=== PATIENT | female | born 1995 | race Caucasian/White ===

== ENCOUNTER 2021-12-19 11:45 | Emergency (ER) | payer OTHER, MEDICAID, SELFPAY ==
--- NOTE | ~2021-12-19 | CT_ITS ---
EXAMINATION: CT ABDOMEN AND PELVIS WITHOUT CONTRAST CLINICAL INFORMATION: Left flank pain COMPARISON: None TECHNIQUE: Multidetector volumetric imaging was performed from the superior aspect of the liver through the pubic symphysis. Sagittal and coronal reformatted images were obtained on the technologist's workstation. This CT examination was performed using dose optimization techniques as appropriate, variously including the following: *Automated exposure control *Adjustment of mA and/or kV according to patient size (this includes techniques or standardized protocols for targeted exams where dose is matched to indication/reason for exam; i.e. extremities or head) *Use of iterative reconstruction technique DLP: 343 mGy-cm FINDINGS: LUNG BASES: The visualized lung bases are unremarkable. LIVER, GALLBLADDER, AND BILIARY TREE: The liver is normal in size, shape, and attenuation. No focal hepatic lesion or biliary ductal dilatation is present. The gallbladder is unremarkable with no evidence of radiopaque gallstones, gallbladder wall thickening, or obvious pericholecystic inflammatory changes. PANCREAS: Unremarkable. SPLEEN: Unremarkable. ADRENAL GLANDS: Unremarkable. KIDNEYS AND URETERS: The kidneys are normal in size, shape, and attenuation. No hydronephrosis, hydroureter, or calculi seen. No perinephric stranding. BLADDER: Unremarkable. GASTROINTESTINAL TRACT: The small and large bowel are unremarkable. The appendix is unremarkable. ABDOMINAL WALL: No significant hernia is appreciated. LYMPH NODES: Normal. VASCULAR: Unremarkable. PELVIC VISCERA: The uterus and ovaries appear unremarkable. There is a small amount of fluid in the pelvis. OSSEOUS STRUCTURES: Unremarkable. CT/CT abdomen pelvis wo con IMPRESSION: Unremarkable exam. Fleischner guidelines were followed.
[2021-12-19 12:07] VITALS: BP 127/93; PULSE 90; RESP 16; TEMP 36.7; O2SAT 98; BMI 26.4
[2021-12-19 12:22] LABS: MANUAL DIFF FLAG NO
[2021-12-19 12:24] LABS: Basophils Percent Auto 0.3 % (0-2); Eosinophils Percent Auto 0.2 % (0-4); Hematocrit 35.2 % (37.0-47.0); Hemoglobin 11.2 g/dl (12.0-16.0); Imm Gran Abs Auto 0.06 X10*3/uL (0.00-0.03); Imm Gran Pct Auto 0.7 % (0.0-0.4); Lymphocytes Absolute Auto 1.9 X10*3/uL (1.2-4.9); Lymphocytes Percent Auto 20.9 % (20-40); Mean Corpuscular HGB Conc 31.8 g/dl (31.0-35.0); Mean Corpuscular Hemoglobin 25.5 pg (27.0-33.0); Mean Corpuscular Volume 80.2 fL (80.0-98.0); Mean Platelet Volume 11.1 fL (9.4-12.3); Monocytes Absolute Auto 1.2 X10*3/uL (0.1-1.2); Monocytes Percent Auto 13.1 % (2-11); Neutrophils Absolute Auto 5.9 x10*3/uL (2.0-8.3); Neutrophils Percent Auto 64.8 % (45-73); Platelet Count 173 X10*3/uL (160-400); Red Blood Count 4.39 X10*6/uL (4.20-5.50); Red Cell Distribution Width 17.1 % (11.0-16.0); White Blood Count 9.2 X10*3/uL (4.8-10.8)
[2021-12-19 12:43] LABS: Alanine Aminotransferase 14 U/L (0-31); Albumin Level 4.2 g/dL (3.5-5.0); Alkaline Phosphatase 66 U/L (39-117); Anion Gap 10 (12-20); Aspartate Amino Transferase 19 U/L (5-31); Bilirubin Total 0.3 mg/dL (0.0-1.0); Blood Urea Nitrogen 11 mg/dL (9-16); Calcium 9.8 mg/dL (8.4-10.2); Carbon Dioxide 27 mmol/L (22-29); Chloride 106 mmol/L (96-108); Creatinine Clr Calc Pharmacy 69.5; Estimated Glomerular Filt Rate > 60; Glucose Random 101 mg/dL (60-115); Potassium 4.2 mmol/L (3.3-5.1); Sodium 139 mmol/L (135-145); Total Protein 7.8 g/dL (6.5-8.0)
[2021-12-19 12:45] LABS: Appearance Urine CLOUDY; Color Urine YELLOW; Glucose Urine UA NEG (NEG); Leukocyte Esterase Urine 2+ (NEG); Nitrite Urine POS (NEG); PH 5.5 (5.0-8.0); UACC Culture Trigger YES; Urine Blood 1+ (NEG); Urine Ketones NEG (NEG); Urine Protein TRACE MG/DL (NEG-TRACE)
[2021-12-19 12:47] LABS: UPreg QC Valid YES; Urine Pregnancy NEGATIVE (NEGATIVE)
[2021-12-19 13:01] LABS: Bacteria Urine 2+ /LPF; Squamous Epithelial Cell Urine 2+ /LPF; WBC Clumps Urine NOTED
--- NOTE | 2021-12-19 14:01 | ED.ABDPAIN ---
HPI - Abdominal Pain General Chief Complaint: Abdominal Pain Stated Complaint: R SIDE ABD PAIN Time Seen by Provider: 12/19/21 12:42 Source: patient Mode of arrival: ambulatory Limitations: no limitations History of Present Illness MD elicited complaint: flank pain Pertinent past history: none Onset (ago): day(s) (4) Pain Consistency: constant Location: L flank Severity: moderate Quality: aching and fullness Radiation: none Migration to: no migration Exacerbating factors: nothing Relieving factors: nothing Associated symptoms: nausea, fever, chills and dysuria Related Data Previous Rx's Medication Instructions Recorded levofloxacin 750 mg tablet 750 mg PO Q24H 7 Days #7 tab 12/19/21 ondansetron 4 mg disintegrating 4 mg PO Q8H PRN #20 tab 12/19/21 tablet Allergies Allergy/AdvReac Type Severity Reaction Status Date / Time No Known Drug Allergies AdvReac Unknown Verified 12/19/21 12:14 Review of Systems Review of Systems Constitutional : No Weight loss, pos Fever, pos Chills ENT/Mouth : No sore throat, No Rhinorrhea Eyes: No Swelling, No Redness Cardiovascular : No Chest Pain, No SOB, NoEdema Respiratory : No Cough, No Sputum, No Wheezing Gastrointestinal : Positive Nausea, no Vomiting, no Diarrhea, no abdominal Pain, No Hematochezia, No Melena Genitourinary : pos Dysuria, No Urinary Frequency, No Hematuria, No Urgency Musculoskeletal : No joint pain, No Myalgias, No Joint Swelling Skin : No Skin Lesions, No rash Neuro : No Weakness, No Numbness, No Dizziness, No Headache Psych : No Anxiety/Panic, No Depression Heme/Lymph: No Bruising, No Lymphadenopathy Endocrine : No Polyuria, No Polydipsia All other systems reviewed and are negative. [facility] Past Medical History Attestation statement: The following information was validated with the patient. Medical History (Updated 12/19/21 @ 14:47 by Sabra Shelby DO) No known health problems Social History Social History (Updated 12/19/21 @ 14:15 by Sabra Shelby DO) Patient Tobacco Use Status: Current everyday Tobacco user Patient : No Physical Exam ED Vital Signs: Vital Signs - 24 hr 12/19/21 12:07 Temperature 98.0 F Pulse Rate 90 Respiratory Rate 16 Blood Pressure 127/93 H Pulse Oximetry 98 BMI result Body Mass Index 26.4 Appearance: Alert. Oriented X3. No acute distress. Eyes: Pupils equal, round and reactive to light. ENT: Pharynx normal. Neck: Normal inspection. Neck supple. CVS: Normal heart rate and rhythm. Pulses normal. Respiratory: No respiratory distress. Breath sounds normal. Abdomen: Soft and mild L sided ttp Back: L CVA ttp Skin: Skin warm and dry. Normal skin color. Normal skin turgor. Extremities: No lower extremity edema. No calf ttp Neuro: Oriented X 3. No motor deficit. No sensory deficit. Course Course Course Narrative: CT scan negative for stones not toxic stable for DC at this time - able to tolerate PO MDM - Abdominal Pain MDM Narrative Medical decision making narrative: 26 yo female no PMH here with c/o L flank pain and dysuria/fevers no vomiting - at this time + UTI with WBC clumps concerning for pyelonephritis. Will add on lactic acid, cultures, CT scan for renal colic, IVF, IV toradol for pain, IV ceftriaxone. She has no fever here no WBC count, no vomiting may be able to trial outpatient if she can tolerate PO. Dispo per results and findings. Differential Diagnosis Differential diagnosis: Likely abdominal pain Lab Data Result diagrams: 12/19/21 12:18 12/19/21 12:18 Labs: Lab Results 12/19/21 12/19/21 12/19/21 Range/Units 12:18 12:18 12:24 WBC 9.2 (4.8-10.8) X10*3/uL RBC 4.39 (4.20-5.50) X10*6/uL Hgb 11.2 L (12.0-16.0) g/dl Hct 35.2 L (37.0-47.0) % MCV 80.2 (80.0-98.0) fL MCH 25.5 L (27.0-33.0) pg MCHC 31.8 (31.0-35.0) g/dl RDW 17.1 H (11.0-16.0) % Plt Count 173 (160-400) X10*3/uL MPV 11.1 (9.4-12.3) fL Immature Gran % (Auto) 0.7 H (0.0-0.4) % Neut % (Auto) 64.8 (45-73) % Lymph % (Auto) 20.9 (20-40) % Barnes % (Auto) 13.1 H (2-11) % Eos % (Auto) 0.2 (0-4) % Baso % (Auto) 0.3 (0-2) % Lymph # (Auto) 1.9 (1.2-4.9) X10*3/uL Barnes # (Auto) 1.2 (0.1-1.2) X10*3/uL Eos # (Auto) 0.0 (0.0-0.4) X10*3/uL Baso # (Auto) 0.0 (0.0-0.2) X10*3/uL Abs Immat Gran (auto) 0.06 H (0.00-0.03) X10*3/uL Absolute Neuts (auto) 5.9 (2.0-8.3) x10*3/uL Absolute Nucleated RBC 0.000 (0.0-0.012) X10*3/uL Nucleated RBC % (auto) 0.0 (0.0-0.2) /100WBC Sodium 139 (135-145) mmol/L Potassium 4.2 (3.3-5.1) mmol/L Chloride 106 (96-108) mmol/L Carbon Dioxide 27 (22-29) mmol/L Anion Gap 10 L (12-20) BUN 11 (9-16) mg/dL Creatinine 1.02 (0.5-1.4) mg/dL Estim Creat Clear Calc 69.5 Estimated GFR > 60 Random Glucose 101 (60-115) mg/dL Calcium 9.8 (8.4-10.2) mg/dL Total Bilirubin 0.3 (0.0-1.0) mg/dL AST 19 (5-31) U/L ALT 14 (0-31) U/L Alkaline Phosphatase 66 (39-117) U/L Total Protein 7.8 (6.5-8.0) g/dL Albumin 4.2 (3.5-5.0) g/dL Urine Color Urine Appearance Urine pH (5.0-8.0) Ur Specific [place] (1.005-1.025) Urine Protein (NEG-TRACE) MG/DL Urine Glucose (UA) (NEG) MG/DL Urine Ketones (NEG) MG/DL Urine Blood (NEG) Urine Nitrite (NEG) Ur Leukocyte Esterase (NEG) Urine RBC (0) /HPF Urine WBC (0-4) /HPF Urine WBC Clumps Ur Squamous Epith Cells /LPF Urine Bacteria /LPF Urine Test NEGATIVE (NEGATIVE) 12/19/21 Range/Units 12:24 WBC (4.8-10.8) X10*3/uL RBC (4.20-5.50) X10*6/uL Hgb (12.0-16.0) g/dl Hct (37.0-47.0) % MCV (80.0-98.0) fL MCH (27.0-33.0) pg MCHC (31.0-35.0) g/dl RDW (11.0-16.0) % Plt Count (160-400) X10*3/uL MPV (9.4-12.3) fL Immature Gran % (Auto) (0.0-0.4) % Neut % (Auto) (45-73) % Lymph % (Auto) (20-40) % Barnes % (Auto) (2-11) % Eos % (Auto) (0-4) % Baso % (Auto) (0-2) % Lymph # (Auto) (1.2-4.9) X10*3/uL Barnes # (Auto) (0.1-1.2) X10*3/uL Eos # (Auto) (0.0-0.4) X10*3/uL Baso # (Auto) (0.0-0.2) X10*3/uL Abs Immat Gran (auto) (0.00-0.03) X10*3/uL Absolute Neuts (auto) (2.0-8.3) x10*3/uL Absolute Nucleated RBC (0.0-0.012) X10*3/uL Nucleated RBC % (auto) (0.0-0.2) /100WBC Sodium (135-145) mmol/L Potassium (3.3-5.1) mmol/L Chloride (96-108) mmol/L Carbon Dioxide (22-29) mmol/L Anion Gap (12-20) BUN (9-16) mg/dL Creatinine (0.5-1.4) mg/dL Estim Creat Clear Calc Estimated GFR Random Glucose (60-115) mg/dL Calcium (8.4-10.2) mg/dL Total Bilirubin (0.0-1.0) mg/dL AST (5-31) U/L ALT (0-31) U/L Alkaline Phosphatase (39-117) U/L Total Protein (6.5-8.0) g/dL Albumin (3.5-5.0) g/dL Urine Color YELLOW Urine Appearance CLOUDY Urine pH 5.5 (5.0-8.0) Ur Specific [place] 1.020 (1.005-1.025) Urine Protein TRACE (NEG-TRACE) MG/DL Urine Glucose (UA) NEG (NEG) MG/DL Urine Ketones NEG (NEG) MG/DL Urine Blood 1+ H (NEG) Urine Nitrite POS H (NEG) Ur Leukocyte Esterase 2+ H (NEG) Urine RBC 5-9 H (0) /HPF Urine WBC 76-150 H (0-4) /HPF Urine WBC Clumps NOTED Ur Squamous Epith Cells 2+ /LPF Urine Bacteria 2+ /LPF Urine Test (NEGATIVE) Discharge Plan Discharge Clinical Impression: Pyelonephritis Patient Disposition: Home, Self-Care Instructions: Kidney Infection (ED), Levofloxacin (By mouth) Additional Instructions: return to ED for any worsening symptoms or concerns return if you vomit, cannot tolerate antibiotics, have fevers, feels worse no strenuous exercise while on antibiotics it can cause tendon injury or rupture control pills can become less effective on antibiotics take a probiotic while on antibiotic Prescriptions: New levofloxacin 750 mg tablet 750 mg PO Q24H 7 Days Qty: 7 0RF ondansetron 4 mg tablet,disintegrating 4 mg PO Q8H PRN (Reason: nausea and vomiting) Qty: 20 0RF Stand Alone Forms: Work/School Release
[2021-12-19] MEDS: cefTRIAXone sodium 1 GM in 0.9 % Sodium Chloride 50 ML IV (15:25)
[2021-12-19] MEDS: Ketorolac Tromethamine 30 MG/ML VIAL IVPUSH (15:25)
[2021-12-19] MEDS: ondansetron HCL 4 MG/2 ML VIAL IVPUSH (15:25)
== END 2021-12-19 15:55 | disposition home or self-care (01) ==
PROVIDERS: Emergency Provider Emergency Medicine
DX: N12 Tubulo-interstitial nephritis, not specified as acute or chronic (principal); R10.9 Unspecified abdominal pain; F17.200 Nicotine dependence, unspecified, uncomplicated
CPT/HCPCS: 36415; 74176; 80053; 81001; 81025; 83605; 85025; 87040; 87086; 87088; 87186; 96365; 96375; 99283; 99284; J0696; J1885; J2405

== ENCOUNTER 2022-02-09 09:41 | Emergency (ER) | payer OTHER, SELFPAY ==
[2022-02-09 10:02] VITALS: BP 136/66; PULSE 80; RESP 16; TEMP 37; O2SAT 100; BMI 23.1
--- NOTE | 2022-02-09 11:13 | ED_ITS ---
HPI - Female Genitourinary General Chief complaint: Urogenital-Female Stated complaint: std check Time Seen by Provider: 02/09/22 11:13 Source: patient Mode of arrival: ambulatory Limitations: no limitations History of Present Illness HPI Narrative: Patient is a 26 year old female presenting to the emergency department today requesting STD treatment and testing. Patient states that she had unprotected sex with her ex and her ex had been hooking up with others. Patient denies any dizziness, lightheadedness, vaginal discharge, vaginal bleeding, abdominal pain, nausea, vomiting, fever, chills, blurry vision, double vision, loss of vision, chest pain, difficulty breathing, shortness of breath, back pain, night sweats, pain with urination, increased urinary frequency, increased urinary urgency, blo od in her urine or stool, syncope or a near syncopal episode, recent trauma or falls, bowel incontinence, bladder incontinence, bowel retention, bladder retention, or any other complaints at this time. MD elicited complaint: possible STD Related Data Previous Rx's Medication Instructions Recorded levofloxacin 750 mg tablet 750 mg PO Q24H 7 Days #7 tab 12/19/21 ondansetron 4 mg disintegrating 4 mg PO Q8H PRN #20 tab 12/19/21 tablet doxycycline hyclate 150 mg tablet 150 mg PO BID 7 Days #14 tab 02/09/22 Allergies Allergy/AdvReac Type Severity Reaction Status Date / Time No Known Drug Allergies AdvReac Unknown Verified 12/19/21 12:14 Review of Systems Review of Systems: Yes all other systems are reviewed and are negative Constitutional: Constitutional: Reports no additional constitutional complaints, Denies chills, Denies fever(s) and Denies night sweats Eyes: Eyes: Reports no additional eye complaints, Denies blurry vision, Denies change in vision, Denies diplopia, Denies eye discharge, Denies loss of vision and Denies eye pain ENT: Denies dizziness Cardiovascular: Cardiovascular: Reports no additional cardiovascular complaints, Denies chest pain, Denies lightheadedness, Denies Loss of Consciousness and Denies dyspnea Respiratory: Respiratory: Reports no additional respiratory complaints and Denies dyspnea Gastrointestinal: Gastrointestinal: Reports no additional gastrointestinal complaints, Denies abdominal pain, Denies melena, Denies hematochezia, Denies change in bowel habits and Denies change in stool character Genitourinary: Genitourinary: Denies hematuria, Denies urinary frequency, Denies dysuria, Denies urinary incontinence, Denies urinary hesitancy and Denies urinary urgency Musculoskeletal: Musculoskeletal: Reports no additional musculoskeletal complaints, Denies numbness and Denies tingling Neurologic: Denies dizziness, Denies loss of vision, Denies numbness and Denies tingling Psychiatric: Psychiatric: Reports no additional psychiatric complaints Endocrine: Endocrine: Reports no additional endocrine complaints Hematologic/Lymphatic: Hematologic/Lymphatic: Reports no additional hematologic/lymphatic complaints Allergic/Immunologic: Allergic/Immunologic: Reports no additional allergic/immunologic complaints [facility] Past Medical History Attestation statement: The following information was validated with the patient. Source: old records reviewed Medical History No known health problems Social History Social History Patient Tobacco Use Status: Current everyday Tobacco user Advance Directives: No Advance Directives Information Provided: No Patient : No Physical Exam Vital Signs: Vital Signs: Last Vital Signs Temp 98.6 F 02/09/22 10:02 Pulse 80 02/09/22 10:02 Resp 16 02/09/22 10:02 BP 136/66 02/09/22 10:02 Pulse Ox 100 02/09/22 10:02 BMI result Body Mass Index 23.1 Const: General: cooperative, no acute distress, alert and awake Nutritional Appearance: well nourished Orientation/consciousness: patient oriented x3 Limitations: no limitations HEENT: Head: Yes normal to inspection and Yes atraumatic Ears: hearing grossly normal bilaterally and external ears normal General nose exam: Normal external nose present, no nasal discharge noted and no epistaxis Face and sinus: Yes normal facial exam, No abrasion and No laceration Mouth: Normal oral and palatal mucosa present, no drooling and no muffled voice Eyes: General: appearance normal, both eyes and all related structures Periorbital: periorbital findings normal Eyelids: Yes eyelids normal Conjunctivae: conjunctivae normal Pupils: Equal, round and reactive pupils present EOM: EOMs intact bilaterally Neck: Neck: Yes normal visual inspection, Yes full ROM and Yes no lymphadenopathy Chest: Chest palpation & inspection: normal inspection of the chest Resp: Effort & Inspection: normal respiratory effort and able to speak in complete sentences Auscultation: clear to auscultation bilaterally Cardio: Rate: regular rate Rhythm: regular rhythm GI: Inspection: Yes normal to inspection Neuro: General: patient oriented x3 and moves all extremities Cranial nerves: Yes Equal, round and reactive pupils present Cognition (Neuro): normal cognition Motor exam (neuro): 5/5 motor strength present throughout Sensory Exam: Normal double simultaneous stimulation for sensation Coordination: [id number] test normal Extrem: General: Yes normal to inspection, Yes full ROM and Yes capillary refill normal Psych: Appearance: grossly normal Mental Status: mental status grossly normal Affect: normal affect Attitude: cooperative Thought process: Normal thought process present Thought content: Normal thought content present Insight: Good insight present (Psych) MDM - Female Genitourinary MDM Narrative Medical decision making narrative: Patient is a 26 year old female presenting to the emergency department today requesting STD treatment and testing. Patient's physical exam was unremarkable.Patient's urine is pending. I explained my physical exam findings to the patient. I answered all questions asked by the patient. I stressed the importance of the patient taking her medication as prescribed. I stressed the importance of the patient following up with her primary care provider. I stressed the importance of the patient returning to the emergency department immediately if her symptoms were to worsen or if she were to develop any dizziness, shortness of breath, difficulty breathing, chest pain, blurry vision, loss of vision, nausea, vomiting, abdominal pain, fever, chills, back pain, or any other complaints. Patient verbalized agreement and understanding with this treatment plan and discharge. Differential Diagnosis Differential diagnosis: Likely bacterial vaginosis (STI prophylaxis) Medical Records Attestation: I reviewed the patient's medical records. Discharge Plan Discharge Clinical Impression: STI (sexually transmitted infection) Patient Disposition: Home, Self-Care Instructions: Safe Sex Practices (ED) Additional Instructions: Follow up with your primary care provider. Return to the emergency department immediately if your symptoms worsen or if you develop any dizziness, shortness of breath, difficulty breathing, chest pain, blurry vision, loss of vision, nausea, vomiting, abdominal pain, fever, chills, back pain, or any other complai nts. Prescriptions: New doxycycline hyclate 150 mg tablet 150 mg PO BID 7 Days Qty: 14 0RF No Action levofloxacin 750 mg tablet 750 mg PO Q24H 7 Days Qty: 7 0RF ondansetron 4 mg tablet,disintegrating 4 mg PO Q8H PRN (Reason: nausea and vomiting) Qty: 20 0RF Referrals: Physician,None [Primary Care Provider] - (Follow up with your PCP as needed. ) Interventions: ED Discharge Assessment Last Done: 02/09/22 11:35 Discharge Date/Time: 02/09/22 11:35 Print Language: Green[place]ic
[2022-02-09] MEDS: cefTRIAXone sodium 500 MG, Lidocaine HCl 1 % MPF 1 ML IM (11:30)
[2022-02-09 16:53] LABS: CT PCR NOT DETECTED (Not Detect.); NG PCR NOT DETECTED (Not Detect.)
== END 2022-02-09 11:35 | disposition home or self-care (01) ==
PROVIDERS: Emergency Provider Emergency Medicine Emergency Medical Services
DX: Z20.2 Contact with and (suspected) exposure to infections with a predominantly sexual mode of transmission (principal); F17.200 Nicotine dependence, unspecified, uncomplicated
CPT/HCPCS: 87491; 87591; 96372; 99284; J0696

== ENCOUNTER 2023-07-12 09:31 | Emergency (ER) | payer OTHER, SELFPAY ==
--- NOTE | ~2023-07-12 | XR_ITS ---
EXAMINATION: XR ANKLE, RIGHT CLINICAL INFORMATION: Trauma and pain COMPARISON: None available. TECHNIQUE: AP, lateral, and mortise views of the right ankle. FINDINGS: There is a spiral fracture of the distal right fibula extending to the lateral aspect of the ankle mortise. Lateral soft tissue swelling is present. The distal tibia is intact. The talar dome is also intact. There is mild widening of the medial ankle gutter. XR/XR ankle RT min 3V IMPRESSION: Spiral fracture of the distal right fibula extending to the ankle joint with mild widening of the medial gutter.
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
[2023-07-12 10:14] VITALS: BP 134/89; PULSE 69; RESP 16; TEMP 36.7; O2SAT 100; BMI 32.6
[2023-07-12] MEDS: Ketorolac Tromethamine 15 MG/ML VIAL 30 MG IM (10:46)
[2023-07-12] MEDS: Morphine Sulfate Immed Release 15 MG TABLET PO (12:11)
--- NOTE | 2023-07-12 12:12 | PC.NURSE ---
medicated per the MAR for pain.
== END 2023-07-12 13:00 | disposition home or self-care (01) ==
PROVIDERS: Emergency Provider Emergency Medicine
DX: S82.891A Other fracture of right lower leg, initial encounter for closed fracture (principal); M25.571 Pain in right ankle and joints of right foot; X50.1XXA Overexertion from prolonged static or awkward postures, initial encounter; Y93.9 Activity, unspecified; Y92.9 Unspecified place or not applicable; Y99.9 Unspecified external cause status; Z79.899 Other long term (current) drug therapy
CPT/HCPCS: 29515; 73610; 96372; 99283; 99284; J1885

== ENCOUNTER 2023-07-19 11:33 | Outpatient (AMB) | payer OTHER, SELFPAY ==
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
[2023-07-19 11:40] VITALS: BMI 32.6
== END 2023-07-19 12:04 | disposition home or self-care (01) ==
PROVIDERS: Visit Provider Physician Assistant
DX: S82.831A Other fracture of upper and lower end of right fibula, initial encounter for closed fracture (principal); S82.441A Displaced spiral fracture of shaft of right fibula, initial encounter for closed fracture
CPT/HCPCS: 27786; 99204

== ENCOUNTER → 2023-07-19 11:33 | Outpatient (BNVA) | payer OTHER, SELFPAY | PROVIDERS: Visit Provider Physician Assistant ==

== ENCOUNTER 2023-07-25 07:39 | Day surgery (SDC) | payer OTHER, SELFPAY ==
--- NOTE | 2023-07-23 08:35 | HO.ANESPROP2 ---
Documented by User: Kaylie Duarte NP 07/23/23 08:35 HPI - Anesthesia Eval Consult details Narrative: 28yo F for Right Ankle Fracture ORIF PMFSH Active Problems Active Problems: All Active Problems (Updated 07/19/23 @ 11:44 by Radha Bazzi) Fracture of distal end of right fibula (Acute) Past Medical History Medical History No known health problems Social History Social History Patient Tobacco Use Status: Current someday Tobacco user Tobacco use type: Cigarette Meds Allergies Allergy/AdvReac Type Severity Reaction Status Date / Time No Known Drug Allergies AdvReac Unknown Verified 07/25/23 07:49 Exam Exam Date and Time: July 23, 2023 0835 Assessment and Plan Assessment Anesthesia Assessment: Chart Reviewed Documented by User: Ham Cervantes MD 07/25/23 18:46 HPI - Anesthesia Eval Consult details Narrative: 28yo F for Right Ankle Fracture ORIF Obesity PMFSH Past Medical History Medical History No known health problems Family History Family history of problems with anesthesia: No Surgical History History of Problems with Anesthesia: No Social History Social History Patient Tobacco Use Status: Current someday Tobacco user Tobacco use type: Cigarette Meds Allergies Allergy/AdvReac Type Severity Reaction Status Date / Time No Known Drug Allergies AdvReac Unknown Verified 07/25/23 07:49 Exam Airway Mallampati Class: III Loose/Missing/Broken Teeth: Yes Assessment and Plan Assessment Anesthesia Assessment: Anesthesia Plan Discussed Final Anesthetic Review Family History of Problems with Anesthesia: No History of Problems with Anesthesia: No NPO: Yes ASA Class: II Final Preanesthetic Review: Consent Obtained/Reviewed and Anes Risks/Benef Reviewed Patient Risk: Intermediate Procedure Risk: Intermediate Anesthetic Plan Anesthetic Plan: GA, Regional Block and Agree w/ Assess. and Plan Disposition: Standard PACU
[2023-07-25] VITALS (7 sets, daily range): BP systolic 111–125; BP diastolic 57–84; PULSE 62–83; RESP 14–18; TEMP 36.1–36.9; O2SAT 98–100; BMI 32.1
--- NOTE | ~2023-07-25 | FL_ITS ---
INDICATION: Intraoperative fluoroscopy. FLUOROSCOPY: Fluoroscopy Time: 0.0 minutes Dose/DAP: 0.64044 mGy Images saved: 4 FINDINGS: Multiple intraoperative fluoroscopic images are submitted during open reduction internal fixation of the right ankle. Correlation with operative report. Evaluation is limited secondary to fluoroscopic technique. IMPRESSION: Intra-operative fluoroscopic imaging provided by radiology during open reduction internal fixation of the right ankle. Please refer to operative note for further information.
[2023-07-25 07:55] LABS: UPreg QC Valid YES; Urine Pregnancy NEGATIVE (NEGATIVE)
[2023-07-25] MEDS: Lactated Ringers 1,000 ML 100 ML IVCONT (08:10)
--- NOTE | 2023-07-25 09:24 | MHC.SHP ---
Pre-Procedural Eval Section A Date of Service: 07/25/23 The patient is an INPATIENT: No Changes since office visit: No Cold of Flu in the past 2 weeks, No New Medical Problems, No Changes in Medication and No Patient answered all questions The History & Physical has been completed within 30 days and I have reviewed it.: Yes Section B Chief Complaint: Other fracture of upper and lower end of right fib Allergies: Allergies Allergy/AdvReac Type Severity Reaction Status Date / Time No Known Drug Allergies AdvReac Unknown Verified 07/25/23 07:49 Plan I have reviewed the history and physical and performed a pertinent physical examination on my patient. No changes have occurred unless specified. Time Spent With Patient Time: Total time managing care of this patient today ____ minutes.
--- NOTE | 2023-07-25 10:44 | P.BOP_ITS ---
Brief Operative Note Date of Service: 07/25/23 Pre-op diagnosis: Right fibular fracture Post-op diagnosis: same Procedure: ORIF right fibula Implants: [place] Surgeon: Freddie King MD Anesthesia: GETA and regional Was an Marketing Strategy Analyst used for this Procedure?: Yes Marketing Strategy Analyst: Arabella Todd Estimated blood loss (mL): 10 Tourniquet time (min): 25 IV fluids (mL): 800 Pathology: none sent Condition: stable Disposition: PACU
--- NOTE | 2023-07-30 11:12 | P.OP_ITS ---
Operative Note Operative Note Date of Service: 07/25/23 Narrative: Date of Service: 07/25/23 Pre-op diagnosis: Right fibular fracture Post-op diagnosis: same Procedure: ORIF right fibula Implants: [place] Surgeon: Freddie King MD Anesthesia: GETA and regional Was an Supervisor Industrial Arts Education used for this Procedure?: Yes Supervisor [employer] Education: Arabella Todd Estimated blood loss (mL): 10 Tourniquet time (min): 25 IV fluids (mL): 800 Pathology: none sent Condition: stable Disposition: PACU Procedure in detail: Patient was brought to the operating room and placed supine on the operative table. All bony prominences were well padded and a time-out was called to identify proper site proper procedure proper surgeon. IV antibiotics per weight were administered. I began by exsanguinating limb is slightly tourniquet to 300 mm Hg. I then made a standard posterolateral incision over the fibula. Full- thickness flaps were taken down to the fibular shaft and distal fibula. The fracture was identified and cleaned with a combination of curette, rongeur and irrigation. A lobster claw was used to provisionally reduce the fracture and a 6 hole distal fibular locking plate was applied using standard AO technique. Biplanar fluoroscopy was used to confirm hardware position and fracture reduction. Once I was satisfied that both of these were acceptable I irrigated copiously and turned my attention to the syndesmosis. An external rotation test was performed and the syndesmosis was stable. Therefore all instrumentation was removed and copious irrigation was performed. Absorbable suture and briana were used for closure and the patient was placed into sterile dressings and a well-padded posterior splint. Tourniquet was let down and the patient was extubated brought to recovery room in stable condition there were no known complications.
== END 2023-07-25 12:21 | disposition home or self-care (01) ==
LOC: HO.SSS 07:40
PROVIDERS: Nurse Practitioner; Visit Provider Orthopaedic Surgery
PROC: (CPT 27792; principal; 2023-07-25 09:40)
DX: S82.831A Other fracture of upper and lower end of right fibula, initial encounter for closed fracture (principal); Y04.2XXA Assault by strike against or bumped into by another person, initial encounter; Y93.89 Activity, other specified; Y92.9 Unspecified place or not applicable; Y99.9 Unspecified external cause status; F17.210 Nicotine dependence, cigarettes, uncomplicated; Z79.899 Other long term (current) drug therapy
CPT/HCPCS: 27792; 81025; C1713; J0131; J0690; J2250; J2795; J3010

== ENCOUNTER → 2023-07-25 07:39 | Outpatient (BNV) | payer OTHER, SELFPAY | PROVIDERS: Visit Provider Orthopaedic Surgery | DX: S82.441A Displaced spiral fracture of shaft of right fibula, initial encounter for closed fracture (principal) | CPT/HCPCS: 27792 ==

== ENCOUNTER 2023-08-06 12:10 | Outpatient (REF) | payer OTHER, SELFPAY | END 2023-08-06 12:11 | disposition home or self-care (01) | LOC: HO.HOSX 12:10 | PROVIDERS: Visit Provider Orthopaedic Surgery | DX: S82.831D Other fracture of upper and lower end of right fibula, subsequent encounter for closed fracture with routine healing (principal) | CPT/HCPCS: 73610 ==

== ENCOUNTER 2023-08-06 13:14 | Outpatient (AMB) | payer OTHER, SELFPAY ==
--- NOTE | 2023-08-06 13:34 | MHC.OFFVIS ---
Intake Intake Visit Reasons: PO RT ankle ORIF 07/25/23NE Intake Note: Estelle is a 28 year olf female who presents today for a post operative appointment s/p Right ankle ORIF 07/25/23. Patient reports that she is doing well with mild pain, she is taking oxycodone which is helping her pain. Has some mild numbness in the toes. Allergies No Known Drug Allergies Adverse Reaction (Verified 07/25/23 07:49) Unknown HPI PO RT ankle ORIF 07/25/23NE HPI Details Estelle is a 28 year old woman who presents ~10 days S/P right fibula ORIF. She says she is doing well and is managing her pain with Oxycodone. She complains of some numbness in her toes [facility] Medical History No known health problems Social History Patient Tobacco Use Status: Current someday Tobacco user Tobacco use type: Cigarette Review of Systems Const All systems reviewed & are unremarkable except as noted in HPI and below Physical Exam Const General: no acute distress, alert and awake Orientation/consciousness: patient oriented x3 HEENT Head: Yes normocephalic and Yes atraumatic Eyes EOM: EOMs intact bilaterally Resp Effort & Inspection: normal respiratory effort and able to speak in complete sentences Cardio Jugular venous distension: no JVD Skin General skin exam: turgor normal Rashes: no rashes Neuro General: patient oriented x3 Extrem Other: Right Ankle: Incision C/D/I Psych Appearance: grossly normal Affect: normal affect Attitude: cooperative Results Reviewed Results Reviewed: I personally reviewed relevant radiographs. Ankle lateral malleolus fracture with no hardware complications Mortise aligned Assessment & Plan Assessment & Plan (1) Fracture of distal end of right fibula: Code(s): S82.831A - Other fracture of upper and lower end of right fibula, initial encounter for closed fracture Qualifiers: Encounter type: initial encounter Fracture morphology: unspecified fracture morphology Fracture type: closed Qualified Code(s): S82.831A - Other fracture of upper and lower end of right fibula, initial encounter for closed fracture Plan: This is a 28 year old woman S/P right fibula ORIF, DOS: 07/25/23. She is doing well, with mild pain which she is managing with her Oxycodone prescription. She was placed in a cast today and will remain non-WB. She will follow up in 4 weeks. Plan Scribed for Freddie King MD by Noah Freeman, medical services assistant, on 08/06/23 at 1:55 PM, EST. Orders: Orders XR ankle RT min 3V 08/06/23 M25.579 - Pain in unspecified ankle and joints of unspecified foot Coding Level of Care Code Global (12572) Diagnoses Closed fracture of distal end of right fibula, unspecified fracture morphology, initial encounter S82.831A Encounter type: initial encounter Fracture morphology: unspecified fracture morphology Fracture type: closed
== END 2023-08-06 14:35 | disposition home or self-care (01) ==
PROVIDERS: Visit Provider Orthopaedic Surgery
DX: S82.831A Other fracture of upper and lower end of right fibula, initial encounter for closed fracture (principal)
CPT/HCPCS: 99024

== ENCOUNTER 2023-08-20 14:03 | Outpatient (REF) | payer OTHER, SELFPAY ==
--- NOTE | ~2023-08-20 | XR_ITS ---
EXAMINATION: XR ANKLE, RIGHT CLINICAL INFORMATION: Pain in the right ankle, follow-up fracture. COMPARISON: 08/06/2023 and 07/12/2023 TECHNIQUE: AP, lateral, and mortise views of the right ankle. FINDINGS: Patient is status post placement of ORIF along the lateral malleolus with compression of spiral fracture. Hardware are well positioned and fracture line is barely visualized. Ankle mortise is preserved. Soft tissues unremarkable. XR/XR ankle RT min 3V IMPRESSION: Healing fracture of the lateral malleolus on the right
== END 2023-08-20 14:04 | disposition home or self-care (01) ==
LOC: HO.HOSX 14:03
PROVIDERS: Visit Provider Physician Assistant
DX: S82.831A Other fracture of upper and lower end of right fibula, initial encounter for closed fracture (principal)
CPT/HCPCS: 29405; 73610

== ENCOUNTER 2023-08-20 14:03 | Outpatient (AMB) | payer SELFPAY ==
--- NOTE | 2023-08-20 14:28 | MHC.OFFVIS ---
Intake Intake Visit Reasons: OV-RT ankle ORIF 07/25/23NE CAST CHANGE Intake Note: Estelle a 28 year old female presents today for a cast change s/p right ankle ORIF, DOS 07/25/23 Ne. Patient reports feeling a lot of movement in her cast. She states having a fall last , 08/16/23. Allergies No Known Drug Allergies Adverse Reaction (Verified 08/20/23 14:44) Unknown HPI OV-RT ankle ORIF 07/25/23NE CAST CHANGE HPI Details 28 yo female returns to the office today s/p Rt ankle ORIF 07/25/23 due to loose cast and she fell a few days ago landing on the right side. [facility] Medical History No known health problems Social History Patient Tobacco Use Status: Current someday Tobacco user Tobacco use type: Cigarette Review of Systems Const All systems reviewed & are unremarkable except as noted in HPI and below Physical Exam Const General: no acute distress, alert and awake Orientation/consciousness: patient oriented x3 HEENT Head: Yes normocephalic and Yes atraumatic Eyes EOM: EOMs intact bilaterally Resp Effort & Inspection: normal respiratory effort and able to speak in complete sentences Cardio Jugular venous distension: no JVD Skin General skin exam: turgor normal Rashes: no rashes Neuro General: patient oriented x3 Extrem Other: Right Ankle: Incision well healed. No erythema or swelling. NVI Psych Appearance: grossly normal Affect: normal affect Attitude: cooperative Office Procedures Casting/Splints [id number] Leg Cast Application Procedure code (CPT) selection complete Results Reviewed Results Reviewed: I personally reviewed relevant radiographs. Ankle lateral malleolus fracture with no hardware complications Mortise aligned Assessment & Plan Assessment & Plan (1) Fracture of distal end of right fibula: Code(s): S82.831A - Other fracture of upper and lower end of right fibula, initial encounter for closed fracture Qualifiers: Encounter type: initial encounter Fracture morphology: unspecified fracture morphology Fracture type: closed Qualified Code(s): S82.831A - Other fracture of upper and lower end of right fibula, initial encounter for closed fracture Plan: She will continue NWB. She was placed in another short leg cast and will follow up as planned on 09/06/23, cast off with xrays Orders: Orders XR ankle RT min 3V Today M25.571 - Pain in right ankle and joints of right foot Coding Level of Care Code Global (87627) Diagnoses Closed fracture of distal end of right fibula, unspecified fracture morphology, initial encounter S82.831A Encounter type: initial encounter Fracture morphology: unspecified fracture morphology Fracture type: closed CPT Codes Casting - CPT: 65834-Hqrzl Leg Cast Application ([id number])
== END 2023-08-20 16:12 | disposition home or self-care (01) ==
PROVIDERS: Visit Provider Physician Assistant
DX: S82.831A Other fracture of upper and lower end of right fibula, initial encounter for closed fracture (principal)
CPT/HCPCS: 29405; 99024

== ENCOUNTER 2023-09-06 12:51 | Outpatient (REF) | payer SELFPAY ==
--- NOTE | ~2023-09-06 | XR_ITS ---
EXAMINATION: XR ANKLE, RIGHT CLINICAL INFORMATION: Pain in right ankle COMPARISON: 08/20/2023, 08/06/2023, 07/12/2023. TECHNIQUE: AP, lateral, and mortise views of the right ankle. FINDINGS: Patient is status post fracture of the lateral malleolus with displacement of compression plate and screws. Fragments are well aligned fracture line is barely visualized. Ankle mortise is unremarkable. Soft tissues are normal. XR/XR ankle RT min 3V IMPRESSION: Interval healing of fracture of lateral malleolus.
== END 2023-09-06 12:52 | disposition home or self-care (01) ==
LOC: HO.HOSX 12:51
PROVIDERS: Visit Provider Orthopaedic Surgery
DX: S82.831D Other fracture of upper and lower end of right fibula, subsequent encounter for closed fracture with routine healing (principal)
CPT/HCPCS: 73610

== ENCOUNTER 2023-09-06 13:41 | Outpatient (AMB) | payer SELFPAY ==
--- NOTE | 2023-09-06 13:47 | MHC.OFFVIS ---
Intake Intake Visit Reasons: PO RT ankle ORIF 07/25/23NE Intake Note: Estelle is a 28 year old female who presents today for a post operative appointment s/p RT ankle ORIF 07/25/23. Cast off xrays updated. She reports that she is doing very well, no concerns. Has Allergies No Known Drug Allergies Adverse Reaction (Verified 08/20/23 14:44) Unknown HPI PO RT ankle ORIF 07/25/23NE HPI Details Estelle is a 28 year old woman who presents ~6 weeks S/P right fibula ORIF. She says she is doing well, with no complaints and continues to wear her cast. [facility] Medical History No known health problems Social History Patient Tobacco Use Status: Current someday Tobacco user Tobacco use type: Cigarette Physical Exam Extrem Other: Right Ankle: inc c/d/i Results Reviewed Results Reviewed: I personally reviewed relevant radiographs. Ankle lateral malleolus fracture with no hardware complications Mortise aligned Assessment & Plan Assessment & Plan (1) Fracture of distal end of right fibula: Code(s): S82.831A - Other fracture of upper and lower end of right fibula, initial encounter for closed fracture Qualifiers: Encounter type: initial encounter Fracture morphology: unspecified fracture morphology Fracture type: closed Qualified Code(s): S82.831A - Other fracture of upper and lower end of right fibula, initial encounter for closed fracture Plan: This is a 28 year old woman S/P right fibula ORIF, DOS: 07/25/23. She is doing well, and continues to remain NWB in a cast. Her cast was removed today and she was placed in a walking boot. She will transition to WB as tolerated and she is able to return to work. She will follow up in 6 weeks. Orders: Orders XR ankle RT min 3V 09/06/23 M25.579 - Pain in unspecified ankle and joints of unspecified foot Coding Level of Care Code Global (15764) Diagnoses Closed fracture of distal end of right fibula, unspecified fracture morphology, initial encounter S82.831A Encounter type: initial encounter Fracture morphology: unspecified fracture morphology Fracture type: closed
== END 2023-09-06 14:13 | disposition home or self-care (01) ==
PROVIDERS: Visit Provider Orthopaedic Surgery
DX: S82.831A Other fracture of upper and lower end of right fibula, initial encounter for closed fracture (principal)
CPT/HCPCS: 99024

== ENCOUNTER 2023-10-22 12:02 | Outpatient (REF) | payer SELFPAY | END 2023-10-22 12:03 | disposition home or self-care (01) | LOC: HO.HOSX 12:02 | PROVIDERS: Visit Provider Orthopaedic Surgery | DX: Z13.89 Encounter for screening for other disorder (principal) ==